=== PATIENT | male | born 1980 | race Caucasian/White ===

== ENCOUNTER 2023-09-30 04:44 | Inpatient (IN) | payer OTHER ==
[~2023-09-30] VITALS: Ht 172.7 cm; Wt 62.3 kg
[2023-09-30] VITALS (55 sets, daily range): BP systolic 103–170; BP diastolic 67–122
[2023-09-30 05:30] LABS: BASOPHILS ABSOLUTE AUTO 0.06 K/mm3 (0.00-0.23); BASOPHILS PERCENT AUTO 1 % (0-2); EOSINOPHILS ABSOLUTE AUTO 0.15 K/mm3 (0.00-0.68); EOSINOPHILS PERCENT AUTO 3 % (0-6); Hematocrit 39.8 % (37.0-53.0); Hemoglobin 13.8 g/dL (13.5-17.5); IMMATURE GRAN ABSOLUTE AUTO 0.03 K/mm3 (0.00-0.10); IMMATURE GRAN PERCENT AUTO 1 % (0-1); LYMPHOCYTES ABSOLUTE AUTO 2.37 K/mm3 (0.84-5.20); LYMPHOCYTES PERCENT AUTO 39 % (21-46); MONOCYTES ABSOLUTE AUTO 0.49 K/mm3 (0.16-1.47); MONOCYTES PERCENT AUTO 8 % (4-13); Mean Corpuscular HGB 32.3 pg (26.0-34.0); Mean Corpuscular HGB Conc 34.7 g/dL (31.5-36.5); Mean Corpuscular Volume 93 fL (80-100); Mean Platelet Volume 9.6 fL (9.1-12.4); NEUTROPHILS ABSOLUTE AUTO 2.98 K/mm3 (1.96-9.15); NEUTROPHILS PERCENT AUTO 49 % (41-73); Platelet Count 204 K/mm3 (150-400); RDW Coefficient Variation 13.2 % (11.7-14.2); RDW Standard Deviation 45.1 fL (35.1-46.3); Red Blood Cell Count 4.27 M/mm3 (4.30-5.90); White Blood Cell Count 6.08 K/mm3 (4.00-11.30)
[2023-09-30 05:48] LABS: Alanine Aminotransfer (ALT/SGP 61 U/L (12-78); Albumin, Blood 3.4 g/dL (3.4-5.0); Albumin/Globulin Ratio 0.9 (0.8-1.8); Alk Phos 44 U/L (50-136); Anion Gap 7 mmol/L (6-16); Aspartate Aminotrans (AST/SGOT 58 U/L (12-37); Bilirubin, Total 0.8 mg/dL (0.1-1.0); Blood Urea Nitrogen 7 mg/dL (8-24); Bun/Creatinine Ratio 9.7 (12.0-20.0); CO2, Blood 25 mmol/L (21-32); Calcium, Blood 9.4 mg/dL (8.5-10.1); Chloride, Blood 110 mmol/L (98-108); Creatinine, Blood 0.72 mg/dL (0.60-1.20); Ethanol (Alcohol), Blood, Med <3 mg/dL; Globulin, Blood 3.7 g/dL (2.2-4.0); Glomerular Filtration Rate 115 (60-); Glucose, Blood 105 mg/dL (70-99); Potassium, Blood 3.7 mmol/L (3.5-5.5); Sodium, Blood 142 mmol/L (136-145); Total Protein, Blood 7.1 g/dL (6.4-8.2)
--- NOTE | 2023-09-30 06:51 | NUR ---
REPORT RECEIVED FROM GILMAR GREEN PT TRANSPORTED FROM ER TO ICU 14 VIA GURNEY ACCOMPANIED BY ELECTRICIAN YARD. MOVED TO ICU BED WITH SLIDE SHEET. PT DID NOT AWAKEN UPON TRANSFER. REMOVED CLOTHING AND PLACED IN HOSPITAL GOWN. PT OPENS EYES AND MUMBLES BEFORE FALLING BACK TO SLEEP. DOES NOT FOLLOW COMMANDS. PIV X1, SL. PLACED ON CLERICAL ADJUDICATOR. HR 55-60, BP 166/89, MAP 113, O2 SAT 92 % ON ROOM AIR, RESP RATE 15. PT HAS NO FAMILY AT BEDSIDE. BELONGINGS INCLUDE SCRUB PANTS, 1 PAIR BLACK SOCKS, UNDERWEAR, BLACK RUBBER SHOES AND GLASSES. BEADED BRACELET IN PLACE ON RIGHT WRIST. WEIGHT AND TEMP DOCUMENTED, QUICK ADMIT DONE. POC ONGOING.
--- NOTE | 2023-09-30 07:44 | NUR ---
AM NOTE... ASSUMED CARE OF PT AT 0700. PT IS CURRENTLY SLEEPING, MOANS AND THRASHES HIS HEAD TO VERBAL STIMULI BUT FALLS QUICKLY BACK ASLEEP. HE IS ON RA WITH O2 SATS>95% L/S CLEAR T/O. HE IS SR TO SB 40'S-60'S BP IS STABLE WITH MAPS>65. NO EDEMA IS NOTED ON THIS ASSESSMENT. BT PRESENT AND NORMOACTIVE. PER REPORT THE PT'S LAST KNOWN DRINK WAS WED THE 15TH, CWIA SCORE IS 7. WILL CONTINUE TO MONITOR
--- NOTE | 2023-09-30 09:41 | NUR ---
PT UPDATE.... THIS RN NOTED THE PT WAS STARTING TO WAKE UP AND THRASH HIS ARMS AROUND THE BED AND PULL HIS GOWN/SULEMAN/IV. THIS RN ATTEMPTED TO CALM THE PT AND RE-ORIENT HIM BUT THE PT HIS THIS RN'S RIGHT HAND/ARM AND YELLED : " GET THE FUCK AWAY FROM ME I FUCKING HATE YOU!" AT THIS TIME THIS RN CALLED ARTUR SUTTON RN AND SECURITY. PRIOR TO SECURITY ARRVING THE PT WAS YELLING AT STAFF AND COMING UP OUT OF THE BED AGGRESIVLY TOWARDS THIS RN AND ARTUR RN. 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 ONCE THE SECURITY OFFICERS ARRIVED THE PT WAS UP OUT OF BED AND HAD PULLED HIS GOWN AND ALL HIS LEADS AND IV OUT. THE PT CONTINUED TO YELL AT STAFF ABOUT ALIENS AND BEING HELD AGAINST HIS WILL. PT REFUSED TO LET STAFF PLACE ANOTHER IV BUT AGREED TO ALLOW AN IM INJECTION. PROVIDER WAS NOTIFIED. AN IM INJECTION WAS GIVEN PER ORDERS. WILL CONTINUE TO MONITOR.
--- NOTE | 2023-09-30 17:16 | NUR ---
SHIFT SUMMARY.... THE PT WAS STARTED ON A PRECEDEX DRIP RUNNING AT 0.7MCG/KG/HR AND TITRATED DOWN TO 0.5MCG/KG/HR WITH PRN IV ATIVAN FOR CWIAs IN THE 30'S. THE PT'S HR HAS BEEN [place] TO SR 50'S-70'S WITH SOME DIPS IN TO THE 40'S. BP STABLE WITH MAPS>65. PT HAD NOT VOIDED ALL SHIFT, BLADDER SCAN WAS DONE THAT SHOWED 435MLS OF URINE, ST CATH WAS DONE AND 500MLS OF URINE WAS DRAINED. PT HAS NOT HAD BM THIS SHIFT. WILL CONTINUE TO MONITOR UNTIL REPORT IS GIVEN TO ONCOMING RN.
[2023-10-01] VITALS (75 sets, daily range): BP systolic 103–165; BP diastolic 78–123
[2023-10-01 04:38] LABS: BASOPHILS ABSOLUTE AUTO 0.04 K/mm3 (0.00-0.23); BASOPHILS PERCENT AUTO 0 % (0-2); EOSINOPHILS ABSOLUTE AUTO 0.15 K/mm3 (0.00-0.68); EOSINOPHILS PERCENT AUTO 1 % (0-6); Hematocrit 42.4 % (37.0-53.0); Hemoglobin 14.5 g/dL (13.5-17.5); IMMATURE GRAN ABSOLUTE AUTO 0.04 K/mm3 (0.00-0.10); IMMATURE GRAN PERCENT AUTO 0 % (0-1); LYMPHOCYTES ABSOLUTE AUTO 1.55 K/mm3 (0.84-5.20); LYMPHOCYTES PERCENT AUTO 14 % (21-46); MONOCYTES PERCENT AUTO 5 % (4-13); Mean Corpuscular HGB 32.4 pg (26.0-34.0); Mean Corpuscular HGB Conc 34.2 g/dL (31.5-36.5); Mean Corpuscular Volume 95 fL (80-100); Mean Platelet Volume 9.4 fL (9.1-12.4); NEUTROPHILS ABSOLUTE AUTO 8.93 K/mm3 (1.96-9.15); NEUTROPHILS PERCENT AUTO 80 % (41-73); Platelet Count 191 K/mm3 (150-400); RDW Coefficient Variation 13.2 % (11.7-14.2); RDW Standard Deviation 46.4 fL (35.1-46.3); Red Blood Cell Count 4.48 M/mm3 (4.30-5.90); White Blood Cell Count 11.21 K/mm3 (4.00-11.30)
[2023-10-01 04:56] LABS: Albumin, Blood 3.2 g/dL (3.4-5.0); Albumin/Globulin Ratio 0.9 (0.8-1.8); Bilirubin, Total 0.8 mg/dL (0.1-1.0); Bun/Creatinine Ratio 9.3 (12.0-20.0); Calcium, Blood 8.9 mg/dL (8.5-10.1); Creatinine, Blood 0.86 mg/dL (0.60-1.20); Globulin, Blood 3.5 g/dL (2.2-4.0); Potassium, Blood 3.9 mmol/L (3.5-5.5); Total Protein, Blood 6.7 g/dL (6.4-8.2)
--- NOTE | 2023-10-01 06:29 | NUR ---
SHIFT SUMMARY PT SLEPT WELL MOST OF THE SHIFT. RESTLESS ON OCCASION, GOOD RELIEF WITH ATIVAN. PRECEDEX DRIP TITRATED DOWN TO 0.8 DUE TO LOW HR. FOLLOWS COMMANDS, ORIENTED X PERSON ONLY. ABLE TO VOID USING THE URINAL WITH VERBAL PROMPTING. DRINKING FLUIDS WITH ASSISTANCE, NO ISSUES WITH SWALLOWING. TREMORS PRESENT EVERN WHEN SLEEPING, WORSE WHEN AWAKE. PG AND PIV INFUFUSING AND BOTH WITHDRAW BLOOD WELL. NO FAMILY AT BEDSIDE, NO CALLS RECEIVED FOR UPDATES. POC ONGOING.
--- NOTE | 2023-10-01 07:41 | NUR ---
AM NOTE... ASSUMED CARE OF PT AT 0700. PT IS CURRENTLY SLEEPING, PRECEDEX IS RUNNING AT 0.8MCG/KG/HR, PT RESPONDS TO VERBAL STIMULI BUT IS CONFUSED WITH HALLUCINATIONS. HE IS IN SR IN THE 60'S BP IS STABLE WITH MAPS>65. NO EDEMA IS NOTED ON THIS ASSESSMENT. L/S CLEAR T/O HE IS ON RA WITH O2 SATS>90%. BT PRESENT AND NORMOACTIVE, ABD SOFT TO PALPATION. WILL CONTINUE TO MONITOR.
--- NOTE | 2023-10-01 10:59 | NUR ---
PT UPDATE.... AT 1100 THIS RN TOOK A CALL FROM [facility] RN BINH DEAN, SHE STATED THAT THE PT'S FRIEND WAS THERE TO PICK HIM UP. THIS RN ADVISED THE PT'S FRIEND THAT HE WAS NOT ABLE TO MAKE COMPETENT DECISIONS. THE PT'S FRIEND ASKED IF HE COULD TAKE THE PT'S BELONGINGS AND BRING THEM TO THE HOSPITAL. THIS RN ADVISED AGAINST THE PT'S FRIEND TAKING ANY OF THE PT'S BELONGINGS. THE RN BINH DEAN AGREED THAT A STAFF MEMEBER FROM [facility] WOULD BRING THE PT'S BELONGINGS TO THE HOSPITAL. WILL CONTINUE TO MONITOR
--- NOTE | 2023-10-01 15:56 | NUR ---
PT UPDATE.... AT 1555 LIN FROM [facility] BROUGHT ALL OF THE PT'S BELONGINGS FROM THE [facility].
--- NOTE | 2023-10-01 17:22 | NUR ---
SHIFT SUMMARY.... THE PT CONTINUES TO BE ON A PRECEDEX DRIP AT 0.8MCG/KG/HR TO 1.4MCG/KG/HR, WITH PRN IV ATIVAN PUSHES WHEN THE PT BECOMES AGIATED. THE PT'S VS HAVE BEEN STABLE T/O THIS SHIFT. PT HAS NOT HAD A BM THIS SHIFT HE IS ABLE TO VOID IN THE URINAL WITH ASSISTANCE. BED ALARM IS ON WILL CONTINUE TO MONITOR UNTIL REPORT IS GIVEN TO ONCOMING RN.
--- NOTE | 2023-10-01 19:20 | NUR ---
ASSUMED CARE OF PT AT 1900 PT SLEEPING IN BED DURING BEDSIDE SHIFT REPORT. VS WNL. PRECEDEX SET AT 1.4 AT THIS TIME. SEE FULL ASSESSMENT FOR FURTHER DETAILS.
--- NOTE | 2023-10-01 23:10 | NUR ---
PT ATTEMPTED TO PULL IV'S OUT. PULLED OXYGEN MC FROM FACE AND STATES "I HAVE TO GET OUT OF HERE I HAVE A MEETING IN THE MORNING AND MY FRIEND IS GIVING ME A RIDE." PT ASKED ORIENTATION QUESTIONS WITH A/O X2-3 AT THIS TIME. FREQUENT ATTEMPTS TO HANG OVER SIDE OF BED ESPECIALLY IF THE BED ALARM IS ALARMING. PT IS ANXIOUS AND STATING THAT HE IS GOING TO LOSE HIS HOME AND JOB AND BECOME HOMELESS WITH NO FRIENDS. PT EDUCATED ON WHY HE IS HERE AND THE RISKS OF NOT SEEKING HELP WHILE DETOXING. REMINDED THAT HE IS SAFE. BED IN LOW POSITION WITH CALL LIGHT WITHIN REACH. BED ALARM ON.
[2023-10-02] VITALS (39 sets, daily range): BP systolic 84–139; BP diastolic 57–102
--- NOTE | 2023-10-02 05:36 | NUR ---
END OF SHIFT SUMMARY PT RESTED INBETWEEN BEHAVIORAL OUTBURSTS. CAN BE PLEASANT ONE MINUTE AND ANXIOUS AND ANGRY THE NEXT. PT ENCOURAGED TO COUGH AND DEEP BREATH. OXYGEN SUP INITIATED THIS SHIFT D/T DESATS TO MID 80'S WHILE SITTING UP. CURRENTLY AT 4 LPM NC WITH SPO2 92% NO CHANGED IN CARDIAC THIS SHIFT. VITALS WNL. PRECEDEX STILL AT 1.4 NO BM THIS SHIFT. BRIEF IN PLACE. UP TO 90 DEGREES TO USE URINAL OTHERWISE HAS EXTREME HARD TIME. MONITORING UNTIL REPORT GIVEN TO AM RN.
[2023-10-02 09:19] LABS: Albumin, Blood 2.9 g/dL (3.4-5.0); Albumin/Globulin Ratio 0.8 (0.8-1.8); Bilirubin, Total 0.9 mg/dL (0.1-1.0); Bun/Creatinine Ratio 10.2 (12.0-20.0); Calcium, Blood 8.8 mg/dL (8.5-10.1); Creatinine, Blood 0.78 mg/dL (0.60-1.20); Globulin, Blood 3.8 g/dL (2.2-4.0); Potassium, Blood 3.6 mmol/L (3.5-5.5); Total Protein, Blood 6.7 g/dL (6.4-8.2)
--- NOTE | 2023-10-02 17:47 | NUR ---
SHIFT SUMMARY PATIENT MAX CIWA 12. MEDICATED WITH ATIVAN AND LIBRIUM PER EMAR. PRECEDEX GTT DECREASED TO 1 MCG/KG/HR UNTIL THIS EVENING WHEN PATIENT BECAME MORE AGITATED AND LESS REDIRECTABLE-INCREASED BACK TO 1.2 MCG/KG/HR. ONCE CIWA QUESTIONS, SCORES, AND TREATMENTS WERE EXPLAINED PATIENT BECAME LESS AGITATED. CELL PHONE FOUND IN PATIENT BELONGINGS PER PATIENT REQUEST AND CALL MADE TO RACHAEL ON SPEAKER WITH PATIENT IN THE ROOM TO NOTIFY OF CURRENT SITUATION. [facility] CONFIRMED THAT HOUSING WOULD STILL BE AVAILABLE TO PATIENT UPON DISCHARGE. PATIENT VERBALIZED GRATEFULNESS TO THIS NURSE FOR THE PHONE CALL AND INFORMATION. PATIENT TOLERATD PO INTAKE WELL THIS SHIFT WITH NO VOMITING, MINIMAL NAUSEA THIS AFTERNOON. PATIENT HAD TOTAL OF 350ML URINE OUT. NO BM THIS SHIFT. NO OTHER CHANGES THIS SHIFT.
--- NOTE | 2023-10-02 19:15 | NUR ---
CARE ASSUMPTION DURING BEDSIDE SHIFT REPORT Lloyd NELSON RN THE PT IS LYING IN BED SLEEPING COMFORTABLY. PT AROUSING TO MY VOICE AND COMMUNICATING APPROPRIATELY. PT'S MONITOR SHOWING SR 80'S. BP WNL AND STABLE. PT HAS PRECEDEX GTT RUNNING AT 1.2MCG/KG/HR AND NS TKO AT 10ML/HR. SEIZURE PADS ON SIDERAILS AND BED ALARM ON.
[2023-10-03] VITALS (43 sets, daily range): BP systolic 83–154; BP diastolic 54–114
--- NOTE | 2023-10-03 05:42 | NUR ---
FLARING MACHINE OPERATOR SUMMARY PT HAS BEEN ALERT THIS SHIFT W LABILE AFFECT RANGING FROM CALM TO VERY AGITATED W PARANOID IDEATION. PT'S CIWA REMAINS ELEVATED HIGH 18 THIS SHIFT. THIS RN ATTEMPTED TITRATE THE PT'S PRECEDEX GTT DOWN HOWEVER SHORTLY AFTER GOING DOWN ON THE PRECEDEX THE PT BECAME VERY AGITATED YELLING OUT AT STAFF EVEN AFTER RECIEVING IV ATIVAN. PT HAS REMAINED ON PRECEDEX AT 1.2 MCG/KG/HR THIS SHIFT. PT'S STABLE THIS SHIFT. MONITOR SHOWING SR 70'S-80'S THIS SHIFT. SPO2 >90% ON 4L NC. PT HAS SLEPT ON AND OFF T/O SHIFT AWAKENING EACH TIME VERY AGITATED NOT KNOWING WHY HE IS STILL IN THE HOSPITAL REQUIRING A LOT OF REDIRECTION AND EDUCATION FROM THE STAFF TO GET HIM TO CALM DOWN. PT HAD TWO BM'S THIS SHIFT ONE OF WHICH WAS A VERY LARGE INCONTINENT LIQUID BM IN BED. PT VOIDING WELL THIS SHIFT W ASSISTANCE. PT CURRENTLY LYING IN BED ASLEEP COMFORTABLY W CALL LIGHT WITHIN REACH. WILL REPORT TO JOSE SCHAFER.
--- NOTE | 2023-10-03 08:45 | NUR ---
ASSUMED CARE / PROVIDERS: REPORT RECEIVED FROM SCOTT Barone RN. ASSUMED CARE OF THIS PT AT APPROX 0700. ON ASSESSMENT, THE PT IS RESTING QUIETLY & AWAKENS EASILY TO VERBAL STIMULUS. HE IS A&O TO ALL AT THAT TIME, PLEASANT & COOPERATIVE, BUT DOES HAVE C/O FEELING ANXIOUS - SEE CIWA SCORES. LS CLEAR, DIM IN BASES. PT ON 4L NC W/ O2 SATS > 92%. OCCASIONAL SNORING RESPIRATIONS NOTED WHILE SLEEPING, PT STS COUGHING R/T "NOT SMOKING FOR ONE WEEK." MONITOR SHOWS SR W/ HR 70s, BP STABLE. PT HAS NO CURRENT GI COMPLAINTS, DENIES NAUSEA, TOLERATING PO INTAKE WELL. NO FURTHER BMs SINCE NOC SHIFT. VOIDS URINE W/O DIFFICULTY. SKIN CONDITION OVERALL INTACT, PT REPOSITIONS HIMSELF PRN FOR COMFORT. THE RESIDENTS HAVE ROUNDED THIS AM & HAVE NO CHANGES TO MAKE. THEY WILL CONSIDER ADDING PHENOBARBITAL TO HIS MEDICATION REGIMEN IF THE PT IS NO LONGER WELL MANAGED W/ ATIVAN, LIBRIUM & PRECEDEX. WILL CONTINUE TO MONITOR & UPDATE NEEDED.
--- NOTE | 2023-10-03 19:02 | NUR ---
SHIFT SUMMARY: NO ACUTE CHANGES SINCE PRIOR UPDATES. PT REMAINS A&O TO ALL, FOLLOWING DIRECTIONS & COOPERATIVE W/ CARE. PRECEDEX INFUSING AT 0.9 MCG/KG/HR CURRENTLY, TITRATING DOWN THROUGHOUT THE SHIFT. PRN ATIVAN & LIBRIUM GIVEN PER EMAR - SEE CIWA. LS CLEAR, DIM IN BASES. PT CURRENTLY ON RA W/ O2 SATS > 92%, OCCASIONAL SNORING RESPIRATIONS NOTED W/ NO DESATS THIS SHIFT. MONITOR SHOWS SR W/ HR 60-70s, BP STABLE. PT HAS NO GI COMPLAINTS, IS TOLERATING PO INTAKE WELL. ONE INCONTINENT SOFT BROWN STL THIS SHIFT, ATTENDS IN PLACE. VOIDS URINE W/O DIFFICULTY USING URINAL. URINE IS DARK YELLOW-TEA COLORED. PROVIDER IN UNIT THIS EVENING, THIS RN REQUESTED MAINTAINENCE FLUIDS FOR PT W/ INADEQUATE PO FLUID INTAKE. LR ORDERED x2 LITERS. SKIN CONDITION OVERALL INTACT, PT REPOSITIONS SELF W/O DIFFICULTY PRN COMFORT. WILL CONTINUE TO MONITOR & REPORT OFF TO ONCOMING RN.
--- NOTE | 2023-10-03 19:15 | NUR ---
CARE ASSUMPTION DURING BEDSIDE SHIFT REPORT Lloyd GIANG RN THE PT IS SL;EEPING COMFORTABLY IN BED ON RM AIR. PT'S MONITOR SHOWING SB/SR 50'S-60'S. BP WBNL AND STABLE. PRECEDEX GTT RUNNING AT 0.9 MCG/KG/HR.
[2023-10-04] VITALS (14 sets, daily range): BP systolic 119–166; BP diastolic 86–122
--- NOTE | 2023-10-04 06:30 | NUR ---
LAYOUT MAN SUMMARY PT HAS BEEN ALERT AND ORIENTED THIS SHIFT COMMUNICATING APPROPRIATELY W STAFF AND USING HIS CALL LIGHT TO MAKE HIS NEEDS KNOWN. PT'S CIWA'S REMAINED <8 THIS SHIFT NOT REQUIRING ANY LIBRIUM OR ATIVAN THIS SHIFT. PRECEDEX GTT TITRATED DOWN THIS SHIFT AND IS NOW ON STAND-BY. CIWA'S REMAIN <5 AND THE PT DENIES ANY ANXIETY OR AGITATION. PT'S MONITOR SHOWED SB 50'S EARLY IN THE SHIFT BUT THE PRECEDEX GTT WAS TITRATED DOWN HIS HR CAME UP TO SR 80'S. BP WNL AND STABLE THIS SHIFT. PT VOIDING WELL AND DID NOT HAVE A BM THIS SHIFT. SPO2 >92% ON RM AIR. WILL REPORT TO ONCOMING RN.
--- NOTE | 2023-10-04 07:48 | NUR ---
Assumed care at 0730 Patient is awake and oriented to person, situation not to time or place. He is interactive during rounding and beside report. He is without a fever temp 97.8. He has stabel vs at this time pulse 86, SaO2 at 100% on Room Air. Patient has good bp 152/ 98 MAP 116. Patient has normal unlabored breathing rate of 16 clear lung sounds t/o and soft abd with good active bowel tones present x 4 quad. Patient has 1 PIV to right FA saline locked but does not draw blood back when checked. Pt has a power glide to left upper forearm that flushes easily but also does not draw blood back. Patient has been voiding previous shifts without difficulty. He is mildly tremulous when hands held out but states he does not feel anxious. He is not showing any concern for hallucinations at this time. This RN has reoriented him to date and time and place. Will follow up with pt on how is recall is.
[2023-10-04] MEDS ORDERED: CHLO25 PO (15:27)
[2023-10-04] MEDS ORDERED: B-1100 M1 PO (15:29)
--- NOTE | 2023-10-04 15:59 | NUR ---
1550 DC INSTRUCTIONS GIVEN. IV'S PULLED OUT ALL INTACT. PATIENT STILL TREMULOUS BUT EAGER TO LEAVE. WAITING FOR HIS RIDE TO SHOW UP. PT DRESSING IN HIS HOME CLOTHES. DISCUSSED THAT HE WILL FIND AN AA GROUP AND SPONSER.
--- NOTE | 2023-10-04 16:59 | NUR ---
PT DC OUT WITH [employer] AND [employer]. 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 PT WALKED TO W/C SLIGHTLY UNSTEADY BUT DOING BETTER THAN THIS MORNING WHEN WALKING AROUND. HOPING FOR THE BEST.
== END 2023-10-04 17:01 | disposition home or self-care (01) | DRG 897 ==
LOC: ER 04:44 → ICUE 05:50
PROVIDERS: Emergency Medicine; Family Medicine; ADMIT Internal Medicine
PROC: HZ2ZZZZ Detoxification Services for Substance Abuse Treatment (ICD-10-PCS; principal; 2023-09-30)
DX: F10.231 Alcohol dependence with withdrawal delirium (principal); F12.90 Cannabis use, unspecified, uncomplicated; R74.8 Abnormal levels of other serum enzymes
CPT/HCPCS: 36415; 80053; 83735; 83880; 85025; 94762; 96374; 96376; 99285-25; A9270; C1751; J1650; J2060; J3360; J3411; J7030; J7050; J7120